=== PATIENT | female | born 1940 | race Caucasian/White ===

== ENCOUNTER 2016-07-20 09:32 | Inpatient (IN) ==
[2016-07-18 16:18] LABS: MANUAL DIFF NEEDED? NO
[2016-07-18 16:25] LABS: BASO% 0.4 % (0.0-0.8); EOS# 0.26 X1000 (0.0-0.7); EOS% 5.4 % (0.0-10.0); HEMATOCRIT 32.8 % (37.0-47.0); HEMOGLOBIN 10.5 g/dL (12.0-16.0); LYMPH# 0.77 X1000 (1.2-3.4); LYMPH% 15.9 % (20.5-51.1); MCH 31.8 PG (27-31); MCV 99.4 FL (81-99); MONO# 0.74 X1000 (0.11-0.59); MONO% 15.3 % (1.7-9.3); MPV 10.2 FL (7.4-10.4); PLT 209 X1000 (130-400)
[2016-07-18 16:40] LABS: CALCIUM 9.4 mg/dL (8.8-10.2); POTASSIUM 4.6 mmol/L (3.5-5.1)
[2016-07-20] MEDS: VANCOMYCIN 1 GM/NS 1 GM/250 ML IVPB ONE ×2 (10:05→11:15)
[2016-07-20] MEDS: LR 1,000 ML ONE ×2 (10:06→10:10)
[2016-07-20] MEDS ORDERED: SENSORCAINE 0.5%-EPI 1:200,000 ONE (12:41)
[2016-07-20] MEDS ORDERED: NEOSPORIN G.U. IRRIGANT ONE (12:41)
[2016-07-20] MEDS ORDERED: FENTANYL ONE (14:14)
[2016-07-20] MEDS ORDERED: DIPRIVAN 1% ONE (14:15)
[2016-07-20] MEDS ORDERED: NS 1,000 ML ONE (14:34)
[2016-07-20] MEDS ORDERED: PHENERGAN ONE (14:37)
[2016-07-20] MEDS ORDERED: ZOFRAN ONE (15:24)
[2016-07-20] MEDS ORDERED: XYLOCAINE-MPF 2% ONE (15:24)
--- NOTE | 2016-07-20 15:37 | OPERATIVE NOTE ---
PROCEDURE DATE: 07/20/2016 DATE OF SURGERY: 07/20/2016. PREOPERATIVE DIAGNOSIS: Split depression lateral tibial plateau fracture, left knee. POSTOPERATIVE DIAGNOSIS: Split depression lateral tibial plateau fracture, left knee. PROCEDURE: Open reduction, internal fixation, left lateral plateau fracture. SURGEON: Alma Pedroza MD. SALESPERSON MEN'S FURNISHINGS: Alex Osuna. ANESTHESIA: Spinal. COMPLICATION: None. PROCEDURE IN DETAIL: A 76-year-old female with a split depression lateral tibial plateau fracture presents for surgical reduction. Risks, benefits, and no guarantees were discussed, and the patient is willing to proceed. She was taken to the operating room and satisfactory anesthesia obtained. The left leg was prepped and draped in usual sterile fashion. A time-out was taken to confirm operative site, procedure, and patient. The leg was wrapped with an Esmarch. Tourniquet inflated to 350 mmHg. A midline incision was made starting at the inferior pole of the patella and carried down to the tibial tubercle and just past this along the shaft of the tibia. Dissection was carried down along the lateral aspect of the infrapatellar tendon to expose the lateral tibial plateau fracture. A split depression fracture was noted. The tibial dome was impacted down into the metaphysis with a minimally displaced split fracture. Subperiosteal dissection was then utilized to expose this. A cortical window was made in the anteromedial tibia and a tamp used under fluoroscopic guidance to elevate the tibial dome back to the joint line. After elevation of this, the area was backfilled with Norian for support. A pre contoured lateral tibial plateau plate was then secured to the lateral aspect and locking screws placed across the plateau and into the medial side under fluoroscopic guidance with care taken to avoid any articular penetration. Afterwards, the joint was taken through a range of motion with good stability. The wound was copiously irrigated and then closed in layers with 0 Vicryl in the deep fascia, 2-0 Vicryl in the subcutaneous, and skin shanell on the skin edges. Sterile dressings completed the closure and the patient was recovered from anesthesia and transferred to recovery room in stable condition. No intraoperative complications were noted. Instrument count and sponge count were correct at the time of closure. cc: Baltazar Pedroza MD
[2016-07-20] MEDS: PERCOCET-10 PO PRN ×2 (16:08→22:28)
[2016-07-20] MEDS ORDERED: ULTRAM PO PRN (17:06)
[2016-07-20] MEDS ORDERED: CYANOCOBALAMIN IM SCH (17:15)
--- NOTE | 2016-07-20 17:41 | CONSULTATION ---
DATE OF CONSULTATION: 07/20/2016 REQUESTING PHYSICIAN: Baltazar Pedroza MD. CHIEF COMPLAINT: Postoperative hypertension, hyperlipidemia, chronic kidney disease. HISTORY OF PRESENT ILLNESS: A 76-year-old, white female with a complicated past medical history, presents for in consultation for above-mentioned symptoms. Current history of present illness began on 07/15/2016. At that time, patient suffered a left knee injury resulting in a fall. The patient was evaluated in the emergency department. X-ray confirmed a fracture of the lateral tibial plateau with depression. The patient was placed in an immobilizer and follow up was arranged with Dr. Pedroza. Throughout the week, patient's pain remained reasonably controlled with medical intervention. She has had profound difficulty with mobilization. The patient had an open reduction and internal fixation of the left lateral plateau fracture today. She tolerated procedure well. Postoperatively, patient complains of some pain, but overall was doing reasonably well. She denies fevers, chills, nausea, vomiting, shortness of breath, chest pains, or palpitations. PAST MEDICAL HISTORY: 1. Abnormal electrocardiogram with long-standing negative T-waves in the precordial leads. 2. Allergic rhinitis. 3. Vitamin B12 deficiency. 4. Anxiety. 5. Mild asthma. 6. History of a breast nodule status post resection in 2011. 7. Status post bilateral cataract removal in 2003. 8. Mild coronary artery disease. 9. Chronic kidney disease with baseline creatinine of approximately 2.0. 10. Type 2 diabetes. 11. Hypertension. 12. Hypertriglyceridemia. 13. Premenopausal menorrhagia status post ANIKA in 1988. 14. Nonalcoholic fatty liver disease. 15. History of presumed hepatitis A in 1972. 16. Hypercalcemia with a negative SPEP and normal parathyroid level. 17. Hyperlipidemia. 18. Hypothyroidism. 19. Low HDL. 20. Menopause. 21. History of a colonic lipoma in 2003. 22. Osteoarthritis. 23. Colonic polyps. 24. History of a right-sided tongue lesion status post negative biopsy. CURRENT MEDICATIONS: 1. Amaryl 2 mg 3 times daily. 2. Co-Q 10 100 mg daily. 3. Crestor 10 mg at bedtime. 4. Vitamin B12 1000 mcg monthly. 5. Fenofibrate 54 mg at bedtime. 6. Lasix 40 mg 1-2 tablets daily. 7. Imdur 30 mg daily. 8. Potassium chloride 10 mEq 2 tablets daily. 9. Levothyroxine 88 mcg daily. 10. Losartan 100 mg daily. 11. Mucinex 600 mg twice daily. 12. Pepcid 20 mg daily. 13. Pioglitazone 45 mg daily. 14. ProAir HFA 1-2 puffs every 4-6 hours as needed. 15. Zyrtec 10 mg at bedtime. ALLERGIES: Patient states she is allergic to Ambien which causes syncope, Cipro which causes a rash, codeine which causes a rash, Diovan which causes a cough, Januvia which causes myalgias, Lipitor which causes transaminitis, metformin which causes diarrhea, omeprazole which causes diarrhea, and penicillins which cause a rash. Plendil which causes edema, Prinivil which causes a cough, sulfa which causes a rash, Symbicort which causes chest pain, and Zocor which causes myalgias. SOCIAL HISTORY: Patient denies tobacco, alcohol and illicit drug use. She is a retired revenue accountant. She enjoys volunteering. She exercises intermittently. FAMILY HISTORY: Patient's father passed at age 68 secondary to complications of an acute myocardial infarction. Patient's mother passed at age 72 secondary to complications of congestive heart failure. REVIEW OF SYSTEMS: A 12 point review of systems was performed. Pertinent positives and negatives are noted in history of present illness. PHYSICAL EXAMINATION: Vital signs: Temperature 97.4, heart rate 91, respirations 17, blood pressure is 145/72. General: Well nourished, well developed, in no acute distress. HEENT: Normocephalic, atraumatic. Pupils equal, round, reactive to light. Extraocular muscles intact. Sclerae anicteric. [place]el conjunctivae. Oral and nasopharynx clear without exudate. Neck: Supple. No lymphadenopathy. No thyromegaly. No bruits auscultated. Cardiovascular: Regular rate and rhythm. No significant murmurs, rubs, or gallops. Pulmonary: Clear to auscultation bilaterally. Abdomen: Soft, nontender, nondistended. Positive bowel sounds. Extremities: Moves all extremities well. No significant clubbing, cyanosis, or edema. Neurologic: Cranial nerves 2-12 grossly intact. Motor and sensory grossly intact. Psychologic: Examination is appropriate. LABORATORY DATA: None. ASSESSMENT AND PLAN: 1. Lateral tibial plateau fracture-the patient is status post open reduction, internal fixation of the left lateral plateau fracture. We will defer postoperative management to Dr. Pedroza. Because of patient's profound inability to ambulate and mobilize, I do feel rehabilitation will be most appropriate. We will plan transfer to rehab once appropriate. We will start physical therapy while in the hospital. 2. Allergic rhinitis-we will continue patient on Zyrtec therapy while hospitalized. 3. Coronary artery disease-patient has a history of mild coronary artery disease. We will continue to optimize patient's medical and non medical management. She is currently asymptomatic. 4. Chronic kidney disease - The patient's creatinine prior to admission was slightly elevated, although not significantly above baseline of 2.0. We will encourage hydration. We will follow this. 5. Type 2 diabetes-we will hold patient's Amaryl while hospitalized. We will start patient on sliding scale insulin. This will be followed. 6. Hypertension-For now, we will continue her home medications. We will remain aware of this. May drop in the setting of postoperative course, blood loss, and narcotic agents. We will follow. 7. Hypertriglyceridemia-we will remain aware. We will continue Crestor therapy. 8. Hyperlipidemia-we will continue Crestor therapy. 9. Hypothyroidism-we will continue patient on replacement. 10. Deconditioning-Over the course of the last week, patient has become more significantly deconditioned. As described above, I do feel patient would best benefit from rehabilitation. We will consult aids social worker in the morning. 11. Fluid, electrolytes, nutrition. We will monitor electrolytes. IV fluids per Dr. Pedroza for now. Diabetic diet. Prophylaxis. Patient will be placed on Xarelto per Dr. Pedroza. cc: MD Baltazar Rivera MD
[2016-07-20] MEDS: ROBAXIN PO PRN (17:55)
[2016-07-20] MEDS ORDERED: FENOFIBRATE PO SCH (21:00)
[2016-07-20] MEDS ORDERED: CRESTOR PO SCH (21:00)
[2016-07-20] MEDS ORDERED: MUCINEX PO SCH (21:00)
[2016-07-20] MEDS: TYLENOL PO SCH (22:24)
[2016-07-20] MEDS: PERIDEX MT SCH (22:24)
[2016-07-20] MEDS: MUCINEX PO SCH (22:24)
[2016-07-20] MEDS: TRICOR PO SCH (22:24)
[2016-07-20] MEDS: HUMALOG SUBQ SCH (22:24)
[2016-07-20] MEDS: CRESTOR PO SCH (22:25)
[2016-07-20] MEDS: ZYRTEC PO SCH (22:25)
[2016-07-20] MEDS ORDERED: VANCOMYCIN 1 GM/NS 1 GM/250 ML IVPB IV ONE (23:15)
[2016-07-21] MEDS: NS 1,000 ML IV SCH ×4 (05:05→16:53)
[2016-07-21] MEDS: XARELTO PO SCH (05:06)
[2016-07-21] MEDS: PERCOCET-10 PO PRN ×4 (05:38→21:34)
[2016-07-21 06:44] LABS: HEMOGLOBIN 10.9 g/dL (12.0-16.0)
[2016-07-21] MEDS: HUMALOG SUBQ SCH ×4 (06:49→21:34)
[2016-07-21 07:04] LABS: CALCIUM 9.4 mg/dL (8.8-10.2); POTASSIUM 4.5 mmol/L (3.5-5.1)
[2016-07-21] MEDS ORDERED: PNEUMOVAX 23 IM ONE (07:45)
[2016-07-21] MEDS ORDERED: AMARYL PO SCH (09:00)
[2016-07-21] MEDS ORDERED: LASIX PO SCH (09:00)
[2016-07-21] MEDS ORDERED: MICRO-K PO SCH (09:00)
[2016-07-21] MEDS: ACTOS PO SCH (09:35)
[2016-07-21] MEDS: IMDUR PO SCH (09:37)
[2016-07-21] MEDS: VITAMIN D PO SCH (09:37)
[2016-07-21] MEDS: COZAAR PO SCH (09:37)
[2016-07-21] MEDS: MUCINEX PO SCH ×2 (09:38→20:04)
[2016-07-21] MEDS: TYLENOL PO SCH ×2 (09:38→20:04)
[2016-07-21] MEDS: PEPCID PO SCH (09:39)
[2016-07-21] MEDS: PERIDEX MT SCH ×2 (09:39→20:04)
[2016-07-21] MEDS: SYNTHROID PO SCH (09:39)
[2016-07-21] MEDS: ROBAXIN PO PRN ×2 (10:54→16:50)
--- NOTE | 2016-07-21 12:23 | PROGRESS NOTE ---
DATE: 07/21/2016 SUBJECTIVE: The patient is postoperative day number 1 of open reduction internal fixation of a left lateral plateau fracture. The patient tolerated the procedure very well. Her postoperative course has been complicated only by left lower extremity muscle spams, resolved with Robaxin therapy. Otherwise, the patient rested well overnight. She denies fevers, chills, nausea, vomiting, shortness of breath or chest discomfort. OBJECTIVE: T-max is 98.9, heart rate 82 to 103, respirations 16 to 18, blood pressure 136 to 152 over 59 to 85. General: Well nourished, well developed, no acute distress. Cardiovascular: Regular rate and rhythm. No significant murmurs, rubs or gallops. Pulmonary: Clear to auscultation bilaterally. Abdomen: Soft, nontender and nondistended. Positive bowel sounds. Extremities: Moves all extremities well. No significant cyanosis, clubbing or edema. Dermatologic: A dressed left lower extremity surgical wound. DIAGNOSTIC DATA: Hemoglobin is 10.9, hematocrit 34.0. Sodium 140, potassium 4.5, chloride 102, bicarb 22, BUN is 33, creatinine 1.7, glucose 112, calcium 9.4. ASSESSMENT AND PLAN: 1. Left lateral tibial plateau fracture. The patient is postoperative day number 1. The patient has achieved stabilization of pain with narcotic pain medication intervention and Robaxin for muscle spasms. We will defer postoperative physical therapy to Dr. Pedroza. Because of the patient's limited mobility, she will likely require rehabilitation at the time of discharge. 2. Allergic rhinitis. We will continue Zyrtec therapy. 3. Coronary artery disease. The patient is optimized medically. She is asymptomatic. We will remain aware. 4. Chronic kidney disease. The patient's creatinine has improved to 1.7 with hydration. We will continue to follow. 5. Type 2 diabetes. The patient's Amaryl has been held. For now, we will continue sliding scale insulin. 6. Hypertension. The patient's blood pressure is reasonably controlled on her current regimen. 7. Hypertriglyceridemia/hyperlipidemia. We will continue Crestor therapy and a diabetic diet. 8. Hypothyroidism. We will continue the patient on replacement. 9. Deconditioning/limited mobility. As above, physical therapy will be dictated per Dr. Pedroza's recommendations. At this point, I suspect the patient will require rehabilitation secondary to her significantly limited mobilization. We will follow this. 10.Disposition. At this point, the patient continues to require halfway care in a hospital setting. We will plan discharge to rehab once appropriate. cc: MD Baltazar Rivera MD
--- NOTE | 2016-07-21 15:16 | PROGRESS NOTE ---
DATE: 07/21/2016 SUBJECTIVE: Is a very pleasant 76-year-old female who underwent a open reduction, internal fixation lateral tibial plateau fracture by Dr. Pedroza on 07/20/2016. She is admitted postoperatively in room 468 A. She is doing well this morning. She has actually been out of bed today. She states her pain is well controlled. She currently denies any nausea, vomiting, fevers, chills. No chest pain, shortness of breath. OBJECTIVE: Vital Signs: Temperature 98.9 degrees, pulse 82, respirations 18, blood pressure 136/59. Her O2 saturation is 99% on room air. LABORATORY STUDIES: Hemoglobin is 10.9, hematocrit 34.0. BUN 33, creatinine 1.7 which is improved from 2.1 on 07/18/2016. EXAMINATION: Examination to the left lower extremity. Skin incisions well approximated. No drainage, no erythema, no sign of infection. Her dressing is clean, dry, and intact. Her compartments are soft. Strength was not assessed due to current postsurgical restrictions. Her calf is soft, nontender. She is grossly neurovascularly intact distally. ASSESSMENT: Postop day #1 open reduction internal fixation lateral tibial plateau fracture, doing well. PLAN: We will continue current postop restrictions Dr. Pedroza placed on her. Continue clean, dry incision. Will change her dressing in the a.m. Continue proper pain control. Plan for rehab on Saturday. Please call with any questions or concerns. cc: DO Baltazar Peterson MD
[2016-07-21] MEDS: TRICOR PO SCH (20:04)
[2016-07-21] MEDS: CRESTOR PO SCH (20:04)
[2016-07-21] MEDS: ZYRTEC PO SCH (20:04)
[2016-07-22] MEDS: NS 1,000 ML IV SCH ×2 (04:34→04:46)
[2016-07-22] MEDS: ROBAXIN PO PRN ×2 (04:52→10:44)
[2016-07-22] MEDS: XARELTO PO SCH ×2 (04:52→05:59)
[2016-07-22] MEDS: HUMALOG SUBQ SCH ×3 (05:59→18:13)
[2016-07-22 06:20] LABS: HEMOGLOBIN 9.5 g/dL (12.0-16.0)
[2016-07-22] MEDS: PERCOCET-10 PO PRN (06:32)
[2016-07-22] MEDS: IMDUR PO SCH (09:09)
[2016-07-22] MEDS: COZAAR PO SCH (09:09)
[2016-07-22] MEDS: ACTOS PO SCH (09:09)
[2016-07-22] MEDS: MUCINEX PO SCH ×2 (09:10→20:17)
[2016-07-22] MEDS: PEPCID PO SCH (09:10)
[2016-07-22] MEDS: PERIDEX MT SCH ×2 (09:10→20:16)
[2016-07-22] MEDS: VITAMIN D PO SCH (09:11)
[2016-07-22] MEDS: SYNTHROID PO SCH (09:11)
[2016-07-22] MEDS: TYLENOL PO SCH ×2 (09:11→20:16)
[2016-07-22] MEDS ORDERED: DULCOLAX PR PRN (13:11)
[2016-07-22] MEDS: COLACE PO SCH ×2 (14:17→20:17)
--- NOTE | 2016-07-22 15:22 | PROGRESS NOTE ---
DATE: 07/22/2016 SUBJECTIVE: Patient is postoperative day #2 open reduction and internal fixation of a left lateral plateau fracture. Patient tolerated the procedure quite well. The patient's last 24 hours have been without significant incident. Patient started physical therapy yesterday. She tolerated this reasonably well. Her pain is controlled. She denies fevers, chills, nausea, vomiting, shortness of breath, or chest discomfort. She complains of constipation today. OBJECTIVE: Vital signs: T-max 98.6 degrees, heart rate 87-93, respirations 14-16, blood pressure 99-129 over 45-83. General: Well nourished, well developed, no acute distress. Cardiovascular: Regular rate and rhythm. No significant murmurs, rubs, or gallops. Pulmonary: Clear to auscultation bilaterally. Abdomen: Soft, nontender, nondistended. Positive bowel sounds. Extremities: Moves all extremities well. No significant clubbing, cyanosis, or edema. Dermatologic: Evaluation reveals a dressed left lower extremity surgical wound. LABORATORY DATA: Hemoglobin 9.5, hematocrit 31.0. PLAN/ASSESSMENT: 1. Left lateral tibial plateau fracture-patient is postoperative day #2. The patient's overall condition continues to slowly improve. Physical therapy was initiated yesterday. Because of her extreme limitation in mobilization, I feel rehabilitation is most appropriate. We will anticipate discharge to rehab tomorrow. 2. Allergic rhinitis-we will continue Zyrtec therapy. 3. Coronary artery disease-patient's condition is optimized. She is asymptomatic. We will remain aware. 4. Chronic kidney disease-the patient's creatinine has returned to baseline status post surgical intervention. We will remain aware. 5. Type 2 diabetes-we will continue patient on sliding scale insulin while hospitalized. We will consider resuming Amaryl at discharge. 6. Hypertension-patient's blood pressure is reasonably controlled on her current regimen. 7. Hypertriglyceridemia/hyperlipidemia-we will continue Crestor and a diabetic diet. 8. Hypothyroidism-patient is well-controlled on replacement. 9. Deconditioning/limited mobility-we will continue physical therapy. As above, patient likely will require rehabilitation at discharge secondary to her extreme limitation of mobility. 10. Disposition-at this point, patient continues to require detention care in the hospital setting. We will anticipate discharge to rehabilitation tomorrow. cc: MD Baltazar Rivera MD
[2016-07-22] MEDS: CRESTOR PO SCH (20:16)
[2016-07-22] MEDS: TRICOR PO SCH (20:17)
[2016-07-22] MEDS: ZYRTEC PO SCH (20:17)
[2016-07-23] MEDS: HUMALOG SUBQ SCH ×3 (03:33→11:30)
[2016-07-23] MEDS: XARELTO PO SCH (06:00)
[2016-07-23 06:24] LABS: HEMATOCRIT 27.9 % (37.0-47.0); HEMOGLOBIN 8.4 g/dL (12.0-16.0)
[2016-07-23] MEDS: PEPCID PO SCH (10:03)
[2016-07-23] MEDS: COLACE PO SCH (10:03)
[2016-07-23] MEDS: SYNTHROID PO SCH (10:04)
[2016-07-23] MEDS: VITAMIN D PO SCH (10:04)
[2016-07-23] MEDS: ACTOS PO SCH (10:05)
[2016-07-23] MEDS: PERIDEX MT SCH (10:05)
[2016-07-23] MEDS: MUCINEX PO SCH (10:05)
[2016-07-23] MEDS: IMDUR PO SCH (10:05)
[2016-07-23] MEDS: TYLENOL PO SCH (10:06)
[2016-07-23] MEDS: COZAAR PO SCH (10:06)
[2016-07-23] MEDS: PERCOCET-10 PO PRN ×2 (10:13→15:12)
[2016-07-23] MEDS: ROBAXIN PO PRN (10:15)
--- NOTE | 2016-07-23 14:30 | HISTORY AND PHYSICAL ---
CHIEF COMPLAINT: Left knee pain. HISTORY OF PRESENT ILLNESS: Ms. Angelo is a 76-year-old white female, past medical history of hypertension, hyperlipidemia, and chronic kidney disease. She suffered left knee injury on 07/15/2016 after having a fall. She was brought to the emergency department, evaluated and x-ray showed a tibial plateau fracture on left side. We admitted the patient and plan for surgery. PAST MEDICAL HISTORY: Anxiety, allergic rhinitis, asthma, coronary artery disease, chronic kidney disease, type 2 diabetes, hypertension, hyperlipidemia, fatty liver, hypothyroidism, arthritis. CURRENT MEDICATIONS: Amaryl 2 mg 3 times a day, Co-Q10 100 mg p.o. daily, Crestor 10 mg at bedtime, vitamin B12 1000 mcg p.o. monthly, fenofibrate 54 mg at bedtime, Lasix 40 mg 1-2 tablets daily, Imdur 30 mg p.o. daily, potassium chloride 10 mEq 2 tablets p.o. daily, levothyroxine 88 mcg p.o. daily, losartan 100 mg p.o. daily, Mucinex 600 mg twice daily, Pepcid 200 mg p.o. daily, pioglitazone 45 mg p.o. daily, ProAir HFA 1-2 puffs every 4-6 hours as needed, Zyrtec 10 mg at bedtime. ALLERGIES: States she is allergic to Ambien, Cipro, codeine, Diovan, Januvia, Lipitor, metformin, omeprazole, penicillins, Plendil, Prinivil, Symbicort, Zocor. PRIMARY CARE PROVIDER: Dr. Fer Norman. SOCIAL HISTORY: Patient denies tobacco and denies alcohol. She is retired. FAMILY HISTORY: Noncontributory. REVIEW OF SYSTEMS: Twelve point review of systems performed was negative except for what was listed in history of present illness. PHYSICAL EXAMINATION: GENERAL: Is the patient is awake, sitting up in bed, articulate and able to answer questions appropriately. HEENT: Head is normocephalic, atraumatic. Pupils round, reactive to light. Nares patent. Throat without exudate. CARDIAC: S1-S2 auscultated. No murmur, rub or gallop noted. LUNGS: Clear to auscultation bilaterally. ABDOMEN: Soft, nontender, nondistended. Bowel sounds present in all quadrants. GENITOURINARY: Not examined. NEUROLOGICAL: Patient has good sensation to dull touch in all extremities. Cranial nerves 2-12 grossly intact. MUSCULOSKELETAL: On physical examination patient has pain in the left knee with palpation in passive range of motion. ASSESSMENT: Left tibial plateau fracture. PLAN: ORIF of the left knee tibial plateau. Risks, benefits, and alternatives of surgery were discussed with patient including risk of anesthesia, bleeding, damage to blood vessels, nerves, tendons, ligaments and other imponderables and patient agrees to proceed with surgery at this time. Dictated by ANGEL Green for Baltazar Pedroza MD cc: ANGEL Green MD
--- NOTE | 2016-07-23 14:32 | Diag Imaging Result Document ---
PROCEDURE NAME: CHEST-PORTABLE - 07/23/2016 PORTABLE CHEST: COMPARISON: No comparison films. FINDINGS: The lungs are well expanded. The heart is mildly enlarged. The vessels are not distended. No pleural effusions identified. Questionable mild increased density in the upper right lung. No other abnormality. IMPRESSION: 1. Cardiomegaly. 2. Questionable small infiltrate in the right upper lobe.
--- NOTE | 2016-07-23 14:53 | DISCHARGE SUMMARY ---
ADMISSION DATE: 07/20/2016 DISCHARGE DATE: ADMITTING DIAGNOSIS: Split depression lateral tibial plateau fracture, left knee. ADDITIONAL DIAGNOSES: 1. Allergic rhinitis. 2. Anxiety. 3. Mild asthma. 4. Coronary artery disease. 5. Type 2 diabetes. 6. Hypertension. 7. Hyperlipidemia. 8. Hypothyroidism. DISCHARGE DIAGNOSES: 1. Split depression lateral tibial plateau fracture, left knee. 2. Allergic rhinitis. 3. Anxiety. 4. Mild asthma. 5. Coronary artery disease. 6. Type 2 diabetes. 7. Hypertension. 8. Hyperlipidemia. 9. Hypothyroidism. ADMITTING HISTORY AND HOSPITAL COURSE: Ms. Angelo is a 76-year-old female who took a fall and had an injury to her left knee causing a fracture of the tibial plateau. We performed surgery to repair the tibial plateau. After the surgery, she remained afebrile and her vital signs remained stable. Today her hematocrit is 27.9. Her vital signs are stable. She is afebrile. There are no signs of infection or DVT. The incision is dry and clean. No signs of infection. We will plan to discharge her to an inpatient rehab facility today. DISCHARGE MEDICATIONS: Amaryl 2 mg p.o. t.i.d., Actos 45 mg p.o. daily, Imdur 30 mg p.o. daily, potassium chloride 20 mEq p.o. q.a.m., Lasix 40 mg p.o. daily, Cozaar 100 mg p.o. daily, cyanocobalamin injection 1000 mcg IM as directed, fenofibrate 54 mg p.o. at bedtime, Synthroid 88 mcg p.o. daily, Crestor 10 mg p.o. at bedtime, Zyrtec 10 mg p.o. at bedtime, cholecalciferol 1000 units p.o. daily, Pepcid 20 mg p.o. daily, Tylenol 1000 mg g p.o. b.i.d., Ultram 50 to 100 mg p.o. q.6 hours p.r.n., guaifenesin 600 mg p.o. b.i.d., docusate 10 mg p.r. daily, Robaxin 500 mg p.o. q.6 hours p.r.n., Percocet 10 1-2 p.o. q.4-6 hours p.r.n. for pain, Zyrtec 10 mg p.o. at bedtime, insulin lispro subcutaneously as directed, Colace 100 mg p.o. b.i.d. p.r.n. DISCHARGE INSTRUCTIONS: Ms. Angelo is discharged to the inpatient rehab facility today where she will begin a physical therapy regimen. If she has any worsening signs or symptoms she needs to call Dr. Pedroza's office. I have discussed this with her and it was also discussed with her the medications she will be discharging on, Percocet 10. I discussed with her if she has any worsening signs or symptoms, any infection or discharge from the incision site to call us at the office immediately. She will need to follow with Dr. Pedroza either in 10 days or after her discharge from the rehab facility to have her shanell removed. Dictated by ANGEL Green for Baltazar Pedroza MD cc: ANGEL Green MD
[2016-07-23 15:50] LABS: MANUAL DIFF NEEDED? NO
[2016-07-23 16:01] LABS: BASO% 0.2 % (0.0-0.8); EOS# 0.19 X1000 (0.0-0.7); EOS% 3.8 % (0.0-10.0); HEMATOCRIT 29.2 % (37.0-47.0); HEMOGLOBIN 9.1 g/dL (12.0-16.0); LYMPH# 0.67 X1000 (1.2-3.4); LYMPH% 13.3 % (20.5-51.1); MCH 32.2 PG (27-31); MCHC 31.2 g/dL (33-37); MCV 103.2 FL (81-99); MONO# 0.56 X1000 (0.11-0.59); MONO% 11.1 % (1.7-9.3); MPV 9.8 FL (7.4-10.4); NEUT% 71.6 % (42.2-75.2); PLT 217 X1000 (130-400); RBC 2.83 XMIL (4.2-5.4)
[2016-07-23 17:02] VITALS: BP 125/49
--- NOTE | 2016-07-24 10:53 | DISCHARGE SUMMARY ---
ADMISSION DATE: 07/20/2016 DISCHARGE DATE: 07/23/2016 ADMISSION DIAGNOSIS: Left tibial plateau fracture. DISCHARGE DIAGNOSES: 1. Left tibial plateau fracture, status post surgical intervention by Dr. Pedroza. 2. Allergic rhinitis, present on arrival. 3. Coronary artery disease, present on arrival. 4. Chronic kidney disease, present on arrival. 5. Type 2 diabetes, present on arrival. 6. Hypertension, present on arrival. 7. Hypertriglyceridemia, present on arrival. 8. Hyperlipidemia, present on arrival. 9. Hyperthyroidism, present on arrival. CONSULTATIONS: I, Dr. Fer Norman, was consulted for further evaluation and management of chronic kidney disease and hypertension. PROCEDURES: Open reduction and internal fixation of the left lateral plateau fracture was performed on 07/20/2016. HISTORY OF PRESENT ILLNESS: See admit note. PHYSICAL EXAMINATION: Vital Signs: Prior to discharge, temperature 97.7 degrees, heart rate 83, respirations 17, blood pressure is 125/49. General: Well nourished, well developed, no acute distress. Cardiovascular: Regular rate and rhythm. No significant murmurs, rubs, or gallops. Pulmonary: Clear to auscultation bilaterally. Abdomen: Soft, nontender, nondistended. Positive bowel sounds. Extremities: Moves all extremities well. No significant clubbing, cyanosis, or edema. Dermatologic: Evaluation reveals no evidence of rash. LABORATORY DATA: Prior to discharge, white blood cell count 5.05, hemoglobin 9.1, hematocrit 29.2, platelet count 217,000. Glucose 151. HOSPITAL COURSE: The patient was admitted as per history and physical examination. Hospital course per condition is as follows. 1. Left lateral tibial plateau fracture-the patient was discharged postoperative day #3. Patient tolerated the surgical intervention very well. We will discharge patient to rehabilitation. Unfortunately, she has significant unsteadiness about her gait which will require physical therapy. We will defer postoperative physical therapy orders and Xarelto orders to Dr. Pedroza. 2. Allergic rhinitis-patient was continued on Zyrtec therapy while hospitalized. Her condition is stable. 3. Coronary artery disease-the patient has longstanding disease. She remains asymptomatic with maximized medical management. 4. Chronic kidney disease-patient's baseline creatinine is approximately 1.7. She achieved stabilization while hospitalized. 5. Type 2 diabetes-patient's Amaryl was held while hospitalized secondary to decreased p.o. intake. Because her intake remains low, we will continue to hold Amaryl. We will cover patient with sliding scale insulin. This will need to be followed. 6. Hypertension-the patient's blood pressure remained reasonably controlled on her home regimen. 7. Hypertriglyceridemia-patient is treated with Crestor and fenofibrate. We will remain aware. 8. Hypothyroidism-we will continue patient on replacement. 9. Deconditioning/unsteady gait/limited mobility-unfortunately, patient has been considerably limited with her fracture and need for crutches and/or a walker. Because of her significant limitation, patient will be transferred to rehabilitation for further physical therapy. Further physical therapy orders will be dictated per Dr. Pedroza. DISCHARGE CONDITION: Good. DISPOSITION: Discharged to rehabilitation. MEDICATIONS: 1. Dulcolax 10 mg suppository as needed. 2. Robaxin 500 mg every 6 hours as needed for muscle spasms. 3. Oxycodone 10/325 one to two tablets every 4 hours as needed. 4. Zyrtec 10 mg at bedtime. 5. Sliding scale insulin. 6. Xarelto 10 mg every [address] Pedroza. 7. Colace 100 mg twice daily as needed. 8. Pioglitazone 45 mg daily. 9. Imdur 30 mg daily. 10. Losartan 100 mg daily. 11. Vitamin B12 1000 mcg monthly. 12. Fenofibrate 45 mg at bedtime. 13. Levothyroxine 88 mcg daily. 14. Crestor 10 mg at bedtime. 15. Vitamin D3 1000 units daily. 16. Famotidine 20 mg daily. 17. Tylenol 1000 mg twice daily. 18. Tramadol 50-100 mg every 6 hours as needed. 19. Guaifenesin ER 600 mg twice daily. 20. Patient was instructed to hold the glimepiride, Lasix, and potassium chloride. FOLLOWUP: The patient to follow with me in approximately 1-2 weeks. The patient is to follow up with Dr. Pedroza as arranged. cc: MD Baltazar Rivera MD [facility]
== END 2016-07-23 17:40 ==
LOC: 4N 09:32 → OR 09:32 → OBSVTOIN 14:23
PROVIDERS: ADMIT Orthopaedic Surgery Adult Reconstructive Orthopaedic Surgery; ATTEND Orthopaedic Surgery Adult Reconstructive Orthopaedic Surgery